=== PATIENT | female | born 1980 | race Native Hawaiian/Other Pacific Islander ===

== ENCOUNTER 2018-01-18 12:43 | Emergency (ER) | payer OTHER ==
[~2018-01-18] VITALS: Ht 165.1 cm; Wt 83.5 kg
[2018-01-18 13:20] VITALS: BP 136/80
== END 2018-01-18 13:20 | disposition home or self-care (01) ==
LOC: ED 12:43
DX: H10.33 Unspecified acute conjunctivitis, bilateral (principal)
CPT/HCPCS: 99282

== ENCOUNTER 2018-01-28 09:57 | Outpatient (CLI) | payer OTHER | END 2018-01-28 19:55 | disposition home or self-care (01) | LOC: MAMMO 09:57 | DX: Z12.31 Encounter for screening mammogram for malignant neoplasm of breast (principal) ==

== ENCOUNTER 2018-02-25 21:20 | Emergency (ER) | payer OTHER ==
[~2018-02-25] VITALS: Ht 165.1 cm; Wt 85.7 kg
[2018-02-25 23:56] VITALS: BP 133/92; TEMP 98.3
== END 2018-02-26 | disposition home or self-care (01) ==
LOC: ED 21:20
DX: S50.12XA Contusion of left forearm, initial encounter (principal); S51.812A Laceration without foreign body of left forearm, initial encounter; W20.8XXA Other cause of strike by thrown, projected or falling object, initial encounter; Y92.098 Other place in other non-institutional residence as the place of occurrence of the external cause
CPT/HCPCS: 96372; 99283; J1885

== ENCOUNTER 2018-04-15 23:19 | Emergency (ER) | payer OTHER ==
[~2018-04-15] VITALS: Ht 165.1 cm; Wt 83.9 kg
[2018-04-16 00:01] VITALS: BP 149/95; TEMP 98.2
[2018-04-16] MEDS ORDERED: CYCL10TA35 PO (00:05)
[2018-04-16] MEDS ORDERED: GABA100C2 PO (00:05)
[2018-04-16] MEDS ORDERED: ACET-689 PO (00:06)
== END 2018-04-16 02:10 | disposition home or self-care (01) ==
LOC: ED 23:19
DX: M79.604 Pain in right leg (principal); W18.39XA Other fall on same level, initial encounter; Y92.89 Other specified places as the place of occurrence of the external cause
CPT/HCPCS: 96372; 99283; J1885

== ENCOUNTER 2018-05-26 18:33 | Emergency (ER) | payer OTHER ==
[~2018-05-26] VITALS: Ht 165.1 cm; Wt 83.5 kg
[~2018-05-26 18:33] MED LIST: ACET-689 PO; CYCL10TA35 PO; GABA100C2 PO
[2018-05-26 21:38] VITALS: BP 138/74; TEMP 99
== END 2018-05-26 21:39 | disposition home or self-care (01) ==
LOC: ED 18:33
DX: S70.02XA Contusion of left hip, initial encounter (principal); S80.12XA Contusion of left lower leg, initial encounter; S90.02XA Contusion of left ankle, initial encounter; N20.0 Calculus of kidney; W17.89XA Other fall from one level to another, initial encounter; Y93.55 Activity, bike riding; Y92.89 Other specified places as the place of occurrence of the external cause
CPT/HCPCS: 36415; 82150; 83690; 96372; 99283; J1885

== ENCOUNTER 2019-03-02 13:53 | Outpatient (CLI) | payer OTHER ==
[~2019-03-02] VITALS: Ht 165.1 cm; Wt 79.4 kg
[2019-03-02 15:13] LABS: PLATELET COUNT 273 K/uL (152-353)
[2019-03-02 15:33] LABS: POTASSIUM 3.8 mmol/L (3.6-5.2); SODIUM 140 mmol/L (136-145)
== END 2019-03-02 18:00 | disposition home or self-care (01) ==
LOC: RESP 13:53 → RAD 13:53 → INF 13:53
PROVIDERS: Nurse Practitioner Family
DX: R55 Syncope and collapse (principal); R07.89 Other chest pain
CPT/HCPCS: 36591; 80053; 82550; 82553; 84484; 85027; 85379; 93005; 96360; 96361

== ENCOUNTER 2019-03-11 18:40 | Emergency (ER) | payer OTHER ==
[~2019-03-11] VITALS: Ht 165.1 cm; Wt 80.3 kg
[2019-03-11] MEDS ORDERED: TRAMADOL HYDROC50 MG PO (19:30)
[2019-03-11 19:43] LABS: PLATELET COUNT 263 K/uL (152-353)
[2019-03-11 19:58] LABS: POTASSIUM 3.7 mmol/L (3.6-5.2); SODIUM 145 mmol/L (136-145)
[2019-03-11 20:43] VITALS: BP 115/80; TEMP 98.5
== END 2019-03-11 20:50 | disposition home or self-care (01) ==
LOC: ED 18:40
PROVIDERS: Emergency Medicine
DX: R07.89 Other chest pain (principal)
CPT/HCPCS: 36415; 80053; 82550; 82553; 84484; 85027; 85379; 93005; 99283

== ENCOUNTER 2019-07-30 17:19 | Emergency (ER) | payer OTHER ==
[~2019-07-30] VITALS: Ht 165.1 cm; Wt 83.9 kg
[~2019-07-30 17:19] MED LIST changes: +TRAMADOL HYDROC50 MG PO
[2019-07-30 18:09] LABS: PLATELET COUNT 277 K/uL (152-353)
[2019-07-30 18:48] LABS: POTASSIUM 3.5 mmol/L (3.6-5.2); SODIUM 141 mmol/L (136-145)
[2019-07-30 19:30] VITALS: BP 131/74; TEMP 98.7
== END 2019-07-30 19:30 | disposition home or self-care (01) ==
LOC: ED 17:19
PROVIDERS: Student in an Organized Health Care Education/Training Program
DX: J40 Bronchitis, not specified as acute or chronic (principal); Z72.0 Tobacco use
CPT/HCPCS: 36415; 80048; 83735; 84484; 85027; 87502; 93005; 94664; 96374; 99284; J2930

== ENCOUNTER 2020-05-31 18:14 | Emergency (ER) | payer OTHER ==
[~2020-05-31] VITALS: Ht 165.1 cm; Wt 83.9 kg
[2020-05-31 19:25] VITALS: BP 122/78; TEMP 98.3
== END 2020-05-31 19:25 | disposition home or self-care (01) ==
LOC: ED 18:14
DX: L25.3 Unspecified contact dermatitis due to other chemical products (principal); T49.4X1A Poisoning by keratolytics, keratoplastics, and other hair treatment drugs and preparations, accidental (unintentional), initial encounter; Y92.89 Other specified places as the place of occurrence of the external cause
CPT/HCPCS: 96372; 99283; J2930

== ENCOUNTER 2020-12-16 22:00 | Emergency (ER) | payer OTHER ==
[~2020-12-16] VITALS: Ht 165.1 cm; Wt 83.9 kg
[2020-12-16 22:00] VITALS: BP 143/93; TEMP 97.2
== END 2020-12-16 22:24 | disposition home or self-care (01) ==
LOC: ED 22:09
DX: R10.84 Generalized abdominal pain (principal)
CPT/HCPCS: 99281

== ENCOUNTER 2021-08-02 21:18 | Emergency (ER) | payer OTHER ==
[~2021-08-02] VITALS: Ht 165.1 cm; Wt 83.0 kg
[2021-08-02 22:05] LABS: PLATELET COUNT 196 K/uL (152-353)
[2021-08-02 22:30] VITALS: BP 125/72
== END 2021-08-02 22:30 | disposition home or self-care (01) ==
LOC: ED 21:18
PROVIDERS: Family Medicine
DX: N39.0 Urinary tract infection, site not specified (principal); U07.1 COVID-19
CPT/HCPCS: 36415; 80053; 81000; 85007; 85027; 87077; 87086; 87088; 87186; 87635; 96372; 99283; J0696; J1885; U0003

== ENCOUNTER 2023-02-26 01:25 | Observation (INO) | payer OTHER ==
[~2023-02-26] VITALS: Ht 165.1 cm; Wt 88.6 kg
[2023-02-26] VITALS (10 sets, daily range): BP systolic 100–147; BP diastolic 55–93; TEMP 97.4–98.3; Ht 165.1 cm; Wt 88.6 kg
[2023-02-26 02:21] LABS: PLATELET COUNT 313 K/uL (152-353)
[2023-02-26 02:54] LABS: POTASSIUM 3.2 mmol/L (3.6-5.2)
[2023-02-27 03:41] VITALS: BP 117/47; TEMP 98.6
[2023-02-27 08:00] VITALS: BP 139/71; TEMP 97.7
[2023-02-27] MEDS ORDERED: HYDR5TAB9 PO (09:15)
[2023-02-27] MEDS ORDERED: 904272561 PO (09:16)
[2023-02-27] MEDS ORDERED: PROMETHAZINE HY25 MG PO (09:21)
== END 2023-02-27 14:47 | disposition home or self-care (01) ==
LOC: ED 01:25 → MED/SURG 04:30
PROVIDERS: ADMIT Emergency Medicine Emergency Medical Services; ATTEND Internal Medicine
DX: L03.116 Cellulitis of left lower limb (principal); L03.115 Cellulitis of right lower limb
CPT/HCPCS: 36415; 80053; 83605; 83735; 84550; 85027; 85379; 85610; 85730; 86140; 87040; 96361; 96365; 96366; 96367; 96372; 96375; 96376; 99221; 99284; G0378; J1650; J2270; J2405; J3370

== ENCOUNTER 2023-03-03 09:42 | Inpatient (IN) | payer OTHER ==
[~2023-03-03] VITALS: Ht 165.1 cm; Wt 107.2 kg
[~2023-03-03 09:42] MED LIST changes: +904272561 PO; +HYDR5TAB9 PO; +PROMETHAZINE HY25 MG PO
[2023-03-03 09:47] VITALS: BP 132/70; TEMP 98.1
[2023-03-03 10:54] LABS: PLATELET COUNT 333 K/uL (152-353)
[2023-03-03 10:59] LABS: POTASSIUM 3.6 mmol/L (3.6-5.2)
[2023-03-03 11:40] VITALS: BP 131/68; TEMP 97.5
[2023-03-03 12:45] VITALS: BP 135/68
[2023-03-03 15:31] VITALS: BP 124/71; TEMP 98.3; Ht 165.1 cm; Wt 107.2 kg
[2023-03-03 19:41] VITALS: BP 114/58; TEMP 98.2
[2023-03-04] VITALS: BP 120/56; TEMP 98
[2023-03-04 03:42] VITALS: BP 125/68; TEMP 97.6
[2023-03-04 05:33] LABS: PLATELET COUNT 311 K/uL (152-353)
[2023-03-04 05:53] LABS: POTASSIUM 4.4 mmol/L (3.6-5.2)
[2023-03-04 08:00] VITALS: BP 120/60; TEMP 97.8
[2023-03-04 12:00] VITALS: BP 111/54; TEMP 97.8
[2023-03-04 16:00] VITALS: BP 113/54; TEMP 97.4
[2023-03-04 20:00] VITALS: BP 118/67; TEMP 98.1
[2023-03-05] VITALS: BP 123/64; TEMP 98
[2023-03-05 04:00] VITALS: BP 108/56; TEMP 98.1
[2023-03-05 07:55] VITALS: BP 111/66; TEMP 97.6
[2023-03-05 12:00] VITALS: BP 113/53; TEMP 98.2
[2023-03-05 14:38] LABS: PLATELET COUNT 308 K/uL (152-353)
[2023-03-05 14:47] LABS: POTASSIUM 4.2 mmol/L (3.6-5.2)
[2023-03-05 16:00] VITALS: BP 116/63; TEMP 98.3
[2023-03-05 20:00] VITALS: BP 116/65; TEMP 98.2
[2023-03-06] VITALS: BP 109/58; TEMP 98.1
[2023-03-06 04:00] VITALS: BP 113/67; TEMP 97.8
[2023-03-06 04:49] LABS: PLATELET COUNT 331 K/uL (152-353)
[2023-03-06 05:14] LABS: POTASSIUM 4.6 mmol/L (3.6-5.2)
[2023-03-06 07:40] VITALS: BP 117/54; TEMP 97.8
[2023-03-06 11:38] VITALS: BP 112/51; TEMP 97.8
[2023-03-06 15:42] VITALS: BP 128/75; TEMP 97.7
[2023-03-06 20:00] VITALS: BP 121/67; TEMP 98.1
[2023-03-07] VITALS: BP 128/60; TEMP 98.2
[2023-03-07 04:00] VITALS: BP 122/70; TEMP 98.9
[2023-03-07 08:41] VITALS: BP 115/65; TEMP 97.6
[2023-03-07 12:25] VITALS: BP 121/71; TEMP 98
[2023-03-07] MEDS ORDERED: CLINDAMYCIN HY300 MG PO (13:58)
== END 2023-03-07 16:08 | disposition home or self-care (01) | DRG 603 ==
LOC: ED 09:42 → MED/SURG 11:24
PROVIDERS: ADMIT Family Medicine; ATTEND Internal Medicine
DX: L03.116 Cellulitis of left lower limb (principal); D72.828 Other elevated white blood cell count; Z85.3 Personal history of malignant neoplasm of breast; E66.8 Other obesity; F15.10 Other stimulant abuse, uncomplicated; F11.10 Opioid abuse, uncomplicated; Z68.37 Body mass index [BMI] 37.0-37.9, adult
CPT/HCPCS: 36415; 80048; 80053; 80202; 80307; 81002; 82550; 83605; 83735; 84100; 85027; 85379; 86140; 87040; 96374; 99284; J1650; J1885; J2930; J3370; J3490